=== PATIENT | female | born 1955 | race Caucasian/White ===

== ENCOUNTER 2023-02-12 14:32 | Emergency (ER) | payer MEDICARE, OTHER, SELFPAY ==
[2023-02-12 14:45] VITALS: BP 160/64; PULSE 55; RESP 16; TEMP 36.3; O2SAT 96; BMI 27.4
[2023-02-12 15:51] LABS: Add Manual Diff / Slide Review NO; Basophils Absolute Auto 100 /uL (0-100); Basophils Percent Auto 1.3 % (0-2); Eosinophils Absolute Auto 100 /uL (0-450); Eosinophils Percent Auto 1.8 % (2-4); Hematocrit 40.3 % (36-46); Hemoglobin 13.7 g/dL (12.0-16.0); Lymphocytes Absolute Auto 2300 /uL (1100-4500); Lymphocytes Percent Auto 28.9 % (25-40); Mean Corpuscular HGB Conc 33.9 % (30-36); Mean Corpuscular Hemoglobin 29.8 PG (26-34); Monocytes Absolute Auto 600 /uL (0-900); Monocytes Percent Auto 7.8 % (3-14); Neutrophils Absolute Auto 4900 /uL (1500-7000); Neutrophils Percent Auto 60.2 % (50-75); Platelet Count 227 X10^3/uL (150-400); Red Blood Cell Count 4.58 X10^6/uL (4.0-5.2); White Blood Cell Count 8.1 X10^3/uL (4.5-11.0)
[2023-02-12 16:02] LABS: Alanine Aminotransferase 14 IU/L (<35); Albumin Globulin Ratio 1.5 (1.0-2.8); Alkaline Phosphatase 54 U/L (38-126); Aspartate Aminotransferase 24 IU/L (14-36); BUN Creatinine Ratio 18.9 (6-22); Blood Urea Nitrogen 17 mg/dL (7-17); Carbon Dioxide 30 mmol/L (22-32); Chloride 105 mmol/L (98-107); Estimated Glomerular Filt Rate > 60 mL/min (>60); Ethanol (ETOH) < 10 mg/dL; Globulin 2.6 g/dL (1.7-4.1); Glucose 104 mg/dL (80-110); HEMOLYSIS < 15 (0-50); Sodium 140 mmol/L (137-145); Total Protein 6.6 g/dL (6.3-8.2)
[2023-02-12 16:07] LABS: COVID19 -Nasal RAPID Negative (Negative)
[2023-02-12 16:34] LABS: TSH w/ Reflex to FT4 0.37 uIU/mL (0.47-4.68)
--- NOTE | 2023-02-12 17:01 | PC.NURSE ---
Pt drinking water. Pt offered meal tray but declined. Pt ambulated to restroom and provided urine specimen.
[2023-02-12 17:04] LABS: Free T4, Direct Thyroxine 1.23 ng/dL (0.78-2.19)
[2023-02-12 17:24] LABS: Appearance Urine UA CLEAR; Bilirubin Urine UA 1+ (NEGATIVE); Color Urine UA YELLOW; Glucose Urine UA NEGATIVE (Negative); Ketones Urine UA NEGATIVE (NEGATIVE); Leukocyte Esterase Urine UA TRACE (NEGATIVE); Nitrite Urine UA NEGATIVE (Negative); Occult Blood Urine UA NEGATIVE (Negative); Protein Urine UA NEGATIVE (Negative); Specific Gravity Urine UA 1.025 (1.000-1.035)
[2023-02-12 17:29] LABS: UR Morphine/Opiate cutoff 300 Positive (Negative); Ur Creatinine Normal (Normal); Ur Specific Gravity Normal (Normal); Urine Amphetamines Negative (Negative); Urine Cocaine Negative (Negative); Urine Methamphetamines Negative (Negative); Urine Phencyclidine Negative (Negative); Urine Tetrahydrocannabinol Positive (Negative); Urine pH Normal (Normal)
[2023-02-12 17:30] LABS: Urine Barbiturates Negative (Negative); Urine Benzodiazepines Negative (Negative); Urine MDMA Negative (Negative); Urine Methadone Negative (Negative); Urine Oxycodone Positive (Negative); Urine Tricyclic Antidepressant Positive (Negative)
[2023-02-12 17:32] LABS: Ictotest Urine Negative (Negative); pH Urine UA 5.5 (4.5-8.0)
[2023-02-12 17:35] LABS: Bacteria Urine Few (2-10); Culture Indicated Urine Specimen Cultured; RBC Urine 0-1/HPF (0-5/HPF); Squamous Epithelial Cell Urine 1-5 /HPF (0-5/HPF); WBC Urine 1-5/HPF (0-5/HPF)
[2023-02-12] MEDS: HYDROCODONE/ACET 5/325 TABLET 2 TAB PO (18:46)
--- NOTE | 2023-02-12 18:59 | PC.NURSE ---
At pt request, spoke with daughter Coleen on phone to provide update and to check on her . Daughter is visiting her father and providing medications and care. Daughter states that the two have a very close relationship and believes it would benefit the pt if they could talk. Daughter reports that pt has been talking about jumping off the bridge for a week, asking her daughter to take care of her dad if she's gone, and just driving away in the middle of the day. Daughter's concern for mom's well-being has been growing through the week and yesterday daughter called law enforcement to notify them of her concern for suicide.
--- NOTE | 2023-02-12 19:53 | ED_ITS ---
HPI - Psych General Chief Complaint: Psychiatric Symptoms Stated Complaint: JAILENE Time Seen by Provider: 02/12/23 15:08 Source: patient and EMS Mode of arrival: EMS History of Present Illness HPI Narrative: 67-year-old female nonsmoker presents by EMS for evaluation of suicidal ideation. She had told multiple family members that she had intended to commit suicide and plan was to jump off the [facility]. Much information is obtained from JAILENE forms from both the real estate appraiser as well as a manager park at [facility]. Family had notified police that the patient had intended to present there and that she was not answering her phone and they are concerned that it actually had been turned off. She had made comments to family that she could no longer care for her , ?that there is plenty of money to take care of them?. It is reported that she was attempting to give away belongings including her dog as well. She denies any history of the same. She does not have access to a mental health worker or carry any mental health diagnoses. She does not have a firearm in the home. Related Data Home Medications Medication Instructions Recorded Confirmed atenolol 25 mg tablet 25 mg PO DAILY 02/12/23 02/12/23 bupropion HCl 150 mg 24 hr tablet, 300 mg PO QAM 02/12/23 02/12/23 extended release citalopram 20 mg tablet 20 mg PO DAILY 02/12/23 02/12/23 doxepin 10 mg capsule 10 - 20 mg PO QPM 02/12/23 02/12/23 hydrocodone 10 mg-acetaminophen 1 tab PO Q4H PRN pain 02/12/23 02/12/23 325 mg tablet Allergies Allergy/AdvReac Type Severity Reaction Status Date / Time meperidine [From Demerol] Allergy Severe Anaphylaxis Verified 02/12/23 18:50 Penicillins Allergy Mild Rash Verified 02/12/23 18:50 erythromycin base AdvReac Mild Nausea Verified 02/12/23 18:50 Sulfa (Sulfonamide AdvReac Mild Cramping Verified 02/12/23 18:50 Antibiotics) of the Muscles sulfamethoxazole AdvReac Mild Nausea Verified 02/12/23 18:50 [From Bactrim] trimethoprim [From Bactrim] AdvReac Mild Nausea Verified 02/12/23 18:50 vancomycin AdvReac Mild Redness of Verified 02/12/23 18:50 Skin Review of Systems Review of Systems Narrative: GENERAL: Denies chills, fatigue, malaise, fever, sweats. HEENT: Denies sinus pain, ear pain, sore throat, difficulty swallowing, dizziness. RESPIRATORY: Denies dyspnea, cough, wheezing, hemoptysis, sputum. CARDIOVASCULAR: Denies chest pain, palpitations, orthopnea, edema, GASTROINTESTINAL: Denies nausea, vomiting, abdominal pain, diarrhea, consti pation, melena. : Denies dysuria, frequency, incontinence, hematuria, urinary retention. MUSCULOSKELETAL: denies weakness, joint pain, or bony pain SKIN: Denies rash, skin lesions, or other NEUROLOGIC: Denies weakness, headache, numbness, change in speech, confusion, seizures, incoordination. PSYCHIATRIC: See HPI 12 point review of systems is negative except for those stated above Patient History Medical History Multiple sclerosis Social History Smoking Status: Never smoker Smoking Status: Never smoker alcohol intake frequency: 0-2 drinks per day Substance Use Type: does not use Exam Narrative Exam Narrative: GENERAL: [67] year old patient appears stated age. Well-developed patient, in mild distress. Tearful, good eye contact, demonstrates capacity and insight. HEAD: Atraumatic. Normocephalic. EYES: Pupils equal round and reactive. Extraocular motions intact. No scleral icterus. No injection or drainage. ENT: Nose without bleeding, purulent drainage. Throat without erythema, tonsillar hypertrophy or exudate. Airway patent. NECK: Trachea midline. Non tender CARDIOVASCULAR: Regular rate and rhythm without murmurs, gallops, or rubs. RESPIRATORY: Clear to auscultation. Breath sounds equal bilaterally. No wheezes, rales, or rhonchi. GASTROINTESTINAL: Abdomen soft, non-tender, nondistended. EXTREMITIES: No edema or joint tenderness. BACK: Nontender without deformity or crepitance. No flank tenderness. NEURO: AOx3. SKIN: No rash or erythema of visible areas Initial Vital Signs Initial Vital Signs: Vital Signs Temperature 97.3 F L 02/12/23 14:45 Pulse Rate 55 L 02/12/23 14:45 Respiratory Rate 16 02/12/23 14:45 Blood Pressure 160/64 H 02/12/23 14:45 Pulse Oximetry 96 02/12/23 14:45 Oxygen Delivery Method Room Air 02/12/23 14:45 Course Orders Ordered: Discontinued Medications Hydrocodone Bitart/Acetaminophen (Hydrocodone/Acet 5/325 Tablet) 2 tab PO NOW ONE Stop: 02/12/23 18:42 Last Admin: 02/12/23 18:46 Dose: 2 tab Documented By: Hydrocodone Bitart/Acetaminophen (Hydrocodone/Acet 5/325 Tablet) 2 tab PO NOW ONE Stop: 02/13/23 07:35 Last Admin: 02/13/23 07:51 Dose: 2 tab Documented By: ST Bupropion HCl (Bupropion Xl 150 Mg Tab) 150 mg PO NOW ONE Stop: 02/13/23 08:31 Last Admin: 02/13/23 08:51 Dose: 150 mg Documented By: ST Citalopram Hydrobromide (Citalopram 10 Mg Tablet) 20 mg PO NOW ONE Stop: 02/13/23 08:31 Last Admin: 02/13/23 08:51 Dose: 20 mg Documented By: ST Lorazepam (Lorazepam 0.5 Mg Tablet) 1 mg PO NOW ONE Stop: 02/12/23 22:59 Last Admin: 02/12/23 23:10 Dose: 1 mg Documented By: RD Vital Signs Vital signs: Vital Signs - 8 hr 02/12/23 23:06 Pulse Rate 54 L Respiratory Rate 18 Blood Pressure 129/60 Pulse Oximetry 96 Oxygen Delivery Method Room Air MDM - Psych Lab Data 02/12/23 15:40 02/12/23 15:40 Labs: Lab Results 02/12/23 02/12/23 02/12/23 Range/Units 15:26 15:40 15:40 WBC 8.1 (4.5-11.0) X10^3/uL RBC 4.58 (4.0-5.2) X10^6/uL Hgb 13.7 (12.0-16.0) g/dL Hct 40.3 (36-46) % MCV 88.0 (80-100) fL MCH 29.8 (26-34) PG MCHC 33.9 (30-36) % RDW 13.0 (11.6-14.8) % Plt Count 227 (150-400) X10^3/uL Neut % (Auto) 60.2 (50-75) % Lymph % (Auto) 28.9 (25-40) % [place] % (Auto) 7.8 (3-14) % Eos % (Auto) 1.8 L (2-4) % Baso % (Auto) 1.3 (0-2) % Neut # (Auto) 4900 (9869-9181) /uL Lymph # (Auto) 2300 (9806-4553) /uL [place] # (Auto) 600 (0-900) /uL Eos # (Auto) 100 (0-450) /uL Baso # (Auto) 100 (0-100) /uL Sodium 140 (137-145) mmol/L Potassium 4.0 (3.4-5.1) mmol/L Chloride 105 (98-107) mmol/L Carbon Dioxide 30 (22-32) mmol/L BUN 17 (7-17) mg/dL Creatinine 0.90 (0.52-1.04) mg/dL Estimated GFR > 60 (>60) mL/min BUN/Creatinine Ratio 18.9 (6-22) Glucose 104 (80-110) mg/dL Calcium 9.0 (8.4-10.2) mg/dL Total Bilirubin 2.0 H (0.2-1.3) mg/dL AST 24 (14-36) IU/L ALT 14 (<35) IU/L Alkaline Phosphatase 54 (38-126) U/L Total Protein 6.6 (6.3-8.2) g/dL Albumin 4.0 (3.5-5.0) g/dL Globulin 2.6 (1.7-4.1) g/dL Albumin/Globulin Ratio 1.5 (1.0-2.8) TSH (0.47-4.68) uIU/mL Free T4 (0.78-2.19) ng/dL Urine Color Urine Appearance Urine pH (4.5-8.0) Ur Specific Cook (1.000-1.035) Urine Protein (Negative) Urine Glucose (UA) (Negative) g/dL Urine Ketones (NEGATIVE) Urine Occult Blood (Negative) Urine Nitrate (Negative) Urine Bilirubin (NEGATIVE) Ur Bilirubin Confirm (Negative) Urine Urobilinogen (0.2) E.U./dL Ur Leukocyte Esterase (NEGATIVE) Urine RBC (0-5/HPF) Urine WBC (0-5/HPF) Ur Squamous Epith Cells (0-5/HPF) Urine Bacteria (None) Ur Culture Indicated? U Opiates 300ng/mL cut (Negative) Ur Oxycodone Screen (Negative) Urine Methadone Screen (Negative) Ur Barbiturates Screen (Negative) U Tricyclic Antidepress (Negative) Ur Phencyclidine Scrn (Negative) Ur Amphetamines Screen (Negative) U Methamphetamines Scrn (Negative) Ur MDMA Scrn (Ecstasy) (Negative) U Benzodiazepines Scrn (Negative) Urine Cocaine Screen (Negative) U Marijuana (THC) Screen (Negative) Ethyl Alcohol < 10 ( - 10) mg/dL SARS-CoV-2 (PCR) Negative (Negative) 02/12/23 02/12/23 02/12/23 Range/Units 15:40 16:50 16:50 WBC (4.5-11.0) X10^3/uL RBC (4.0-5.2) X10^6/uL Hgb (12.0-16.0) g/dL Hct (36-46) % MCV (80-100) fL MCH (26-34) PG MCHC (30-36) % RDW (11.6-14.8) % Plt Count (150-400) X10^3/uL Neut % (Auto) (50-75) % Lymph % (Auto) (25-40) % [place] % (Auto) (3-14) % Eos % (Auto) (2-4) % Baso % (Auto) (0-2) % Neut # (Auto) (1798-0216) /uL Lymph # (Auto) (2595-3020) /uL [place] # (Auto) (0-900) /uL Eos # (Auto) (0-450) /uL Baso # (Auto) (0-100) /uL Sodium (137-145) mmol/L Potassium (3.4-5.1) mmol/L Chloride (98-107) mmol/L Carbon Dioxide (22-32) mmol/L BUN (7-17) mg/dL Creatinine (0.52-1.04) mg/dL Estimated GFR (>60) mL/min BUN/Creatinine Ratio (6-22) Glucose (80-110) mg/dL Calcium (8.4-10.2) mg/dL Total Bilirubin (0.2-1.3) mg/dL AST (14-36) IU/L ALT (<35) IU/L Alkaline Phosphatase (38-126) U/L Total Protein (6.3-8.2) g/dL Albumin (3.5-5.0) g/dL Globulin (1.7-4.1) g/dL Albumin/Globulin Ratio (1.0-2.8) TSH 0.37 L (0.47-4.68) uIU/mL Free T4 1.23 (0.78-2.19) ng/dL Urine Color Yellow Urine Appearance Clear Urine pH 5.5 (4.5-8.0) Ur Specific Cook 1.025 (1.000-1.035) Urine Protein Negative (Negative) Urine Glucose (UA) Negative (Negative) g/dL Urine Ketones Negative (NEGATIVE) Urine Occult Blood Negative (Negative) Urine Nitrate Negative (Negative) Urine Bilirubin 1+ H (NEGATIVE) Ur Bilirubin Confirm Negative (Negative) Urine Urobilinogen 1.0 (0.2) E.U./dL Ur Leukocyte Esterase Trace H (NEGATIVE) Urine RBC 0-1/hpf (0-5/HPF) Urine WBC 1-5/hpf (0-5/HPF) Ur Squamous Epith Cells 1-5 /hpf (0-5/HPF) Urine Bacteria Few (2-10) H (None) Ur Culture Indicated? Specimen cultured U Opiates 300ng/mL cut Positive H (Negative) Ur Oxycodone Screen Positive H (Negative) Urine Methadone Screen Negative (Negative) Ur Barbiturates Screen Negative (Negative) U Tricyclic Antidepress Positive H (Negative) Ur Phencyclidine Scrn Negative (Negative) Ur Amphetamines Screen Negative (Negative) U Methamphetamines Scrn Negative (Negative) Ur MDMA Scrn (Ecstasy) Negative (Negative) U Benzodiazepines Scrn Negative (Negative) Urine Cocaine Screen Negative (Negative) U Marijuana (THC) Screen Positive H (Negative) Ethyl Alcohol ( - 10) mg/dL SARS-CoV-2 (PCR) (Negative) MDM Narrative Medical decision making narrative: 67-year-old female with suicidal ideation and a plan presents for help. Initially there is JAILENE paperwork filled out by police agencies, however when discussing the elements of her medical clearance she states that she wants help and is willing to pursue it. She is medically cleared as of 2229 and it is my opinion that the patient is an excellent candidate and would benefit from hospitalization to address her suicidal ideation with plan [67] year old patient presents with suicidal ideation with plan Primary Historian: patient Labs reviewed and interpreted by myself: No significant abnormal findings Patient is voluntary and willing to pursue help. Calls have been made and thankfully there are beds available at [facility] and they have reviewed the case and are happy to accept. Critical Care Time Critical Care Time Critical Care Time: Yes Total Critical Care Time: 30 Attestation: The high probability of a clinically significant, sudden or life threatening deterioration of the [CV] system(s) required my full and direct attention, intervention and personal management. The aggregate critical care time was [30] minutes. This time is in addition to time spent performing reported procedures but includes the following: [x] Data Review and interpretation [x] Patient assessment and monitoring of vital signs [x] Documentation [x] Medication orders and management Discharge Plan Departure Patient Disposition: Xfer Psychiatric Hosp Clinical Impression: Suicidal ideation Prescriptions: No Action atenolol 25 mg tablet 25 mg PO DAILY doxepin 10 mg capsule 10 - 20 mg PO QPM hydrocodone-acetaminophen 10-325 mg tablet 1 tab PO Q4H PRN (Reason: pain) citalopram 20 mg tablet 20 mg PO DAILY bupropion HCl 150 mg tablet extended release 24 hr 300 mg PO QAM Referrals: Miscellaneous,Doctor, [Primary Care Provider] -
--- NOTE | 2023-02-12 22:15 | PC.NURSE ---
Artemio Obregon at bedside. Paper charting in use.
[2023-02-12 23:06] VITALS: BP 129/60; PULSE 54; RESP 18; O2SAT 96
[2023-02-12] MEDS: LORazepam 0.5 MG TABLET 1 MG PO (23:10)
[2023-02-13] MEDS: HYDROCODONE/ACET 5/325 TABLET 2 TAB PO (07:51)
--- NOTE | 2023-02-13 08:20 | PC.NURSE ---
At pt request, called daughter Coleen to provide update
[2023-02-13 08:24] VITALS: BP 152/66; PULSE 59; O2SAT 96
--- NOTE | 2023-02-13 08:45 | PC.NURSE ---
Called report to Ivis Hilton, MANUEL Martinez
[2023-02-13] MEDS: CITALOPRAM 10 MG TABLET 20 MG PO (08:51)
[2023-02-13] MEDS: buPROPion XL 150 MG TAB PO (08:51)
--- NOTE | 2023-02-13 08:55 | PC.NURSE ---
Gave report to NWVeronica. Pt A&Ox4, ambulates with steady gait to christiano. Returned two bags of personal belongings.
== END 2023-02-13 08:55 ==
PROVIDERS: Emergency Provider Emergency Medicine
DX: R45.851 Suicidal ideations (principal); R07.9 Chest pain, unspecified; Z20.822 Contact with and (suspected) exposure to COVID-19
CPT/HCPCS: 80053; 80305; 80320; 81001; 84439; 84443; 85025; 87086; 87635; 93005; 99284; C9803